=== PATIENT | female | born 1985 | race African-American/Black ===

== ENCOUNTER 2020-09-15 10:42 | Observation (INO) | payer BC, SELFPAY ==
[2020-09-15 10:59] VITALS: BP 118/59; PULSE 89
[2020-09-15 11:00] VITALS: TEMP 36.9
[2020-09-15 11:10] VITALS: BMI 35.7
--- NOTE | 2020-09-15 11:10 | OBADM ---
This patient, Anthony Paris, admitted to the OB room 115 on 09/15 20 at 1042 for observation for c/o contractions and back pain. Patient/family oriented to hospital policies and general routines including ID bracelet, bed and alarms, visiting hours, pain management, procedures, bathroom and other care routines, personal items, smoking policy, room service/diet, and visiting hours. Patient/Family are encouraged to report perceived risks to care and to ask questions if they do not understand what they are told or what they should do.
[2020-09-15 11:26] LABS: Add Urine Microscopic? YES; Appearance Urine Clear (Clear); Bacteria Urine Trace /hpf; Bilirubin Urine Negative (Negative); Blood Urine Negative (Negative); Color Urine Yellow (Yellow); Glucose Urine UA Negative (Negative); Ketones Urine Negative (Negative); Leukocyte Esterase Ur 2+ LEU/UL (Negative); Mucus Urine Rare /lpf; Nitrate Urine Negative (Negative); Protein Urine Negative (Negative); RBC Urine 0-2 /hpf (0-2); Specific Grav Ur 1.006 (1.001-1.035); Squamous Epithelial Cell Urine Few /hpf (Few); Urobilinogen Urine Negative mg/dL (<2.0); WBC Urine 0-3 /hpf
[2020-09-15 12:01] VITALS: BP 116/62; PULSE 78
[2020-09-15 13:01] VITALS: BP 116/58; PULSE 79
--- NOTE | 2020-09-17 08:26 | P.PNOB_ITS ---
OB - Triage/Final Diagnosis Visit Information Comments/Additional reasons for admission: I have assessed the risk for this patient, Anthony Paris, and determined that she would benefit from observation care. Evaluation Laboratory results: Laboratory Tests 09/15/20 11:14 Urine Color Yellow Urine Appearance Clear Urine pH 7.0 Ur Specific [employer] 1.006 Urine Protein Negative Urine Glucose (UA) Negative Urine Ketones Negative Ur Blood (Man) Negative Urine Nitrate Negative Urine Bilirubin Negative Urine Urobilinogen Negative Leukocyte Esterase Rfl 2+ H Urine RBC 0-2 Urine WBC 0-3 Ur Squamous Epith Cells Few Urine Bacteria Trace Hyaline Casts 1-2 Urine Mucus Rare Final Diagnosis (1) False labor: Code(s): O47.9 - False labor, unspecified Status: Acute
== END 2020-09-15 13:05 | disposition home or self-care (01) ==
PROVIDERS: Admitting Provider Obstetrics & Gynecology; PCP Internal Medicine; Visit Provider Obstetrics & Gynecology
DX: O47.03 False labor before 37 completed weeks of gestation, third trimester (principal); Z3A.29 29 weeks gestation of pregnancy
CPT/HCPCS: 81001; G0378; G0379

== ENCOUNTER 2020-11-09 15:54 | Observation (INO) | payer BC, SELFPAY ==
--- NOTE | 2020-11-09 15:54 | OBADM ---
This patient, Anthony Paris, admitted to the OB room Labor/Delivery/Recovery 105 for observation. Patient/family oriented to hospital policies and general routines including ID bracelet, bed and alarms, visiting hours, pain management, procedures, bathroom and other care routines, personal items, smoking policy, room service/diet, and visiting hours. Patient/Family are encouraged to report perceived risks to care and to ask questions if they do not understand what they are told or what they should do.
[2020-11-09 16:16] VITALS: BP 110/66; PULSE 86
[2020-11-09 16:31] VITALS: BP 106/56; PULSE 79
[2020-11-09 16:46] VITALS: BP 105/59; PULSE 80
[2020-11-09 17:01] VITALS: BP 106/59; PULSE 78
[2020-11-09 17:16] VITALS: BP 104/61; PULSE 80
[2020-11-09 17:31] VITALS: BP 104/57; PULSE 78
[2020-11-09 18:03] LABS: Add Urine Microscopic? YES; Appearance Urine Cloudy (Clear); Bacteria Urine Trace /hpf; Bilirubin Urine Negative (Negative); Blood Urine Negative (Negative); Color Urine Yellow (Yellow); Glucose Urine UA Negative (Negative); Ketones Urine Negative (Negative); Leukocyte Esterase Ur 3+ LEU/UL (NEGATIVE); Mucus Urine Few /lpf; Nitrate Urine Negative (Negative); Protein Urine 1+ mg/dL (Negative); Squamous Epithelial Cell Urine Many /hpf (Few)
[2020-11-09 18:13] VITALS: BMI 36.6
--- NOTE | 2020-11-13 09:43 | P.PNOB_ITS ---
OB - Triage/Final Diagnosis Visit Information Comments/Additional reasons for admission: I have assessed the risk for this patient, Anthony Paris, and determined that she would benefit from observation care. Evaluation Laboratory results: Laboratory Tests 11/09/20 17:46 Urine Color Yellow Urine Appearance Cloudy H Urine pH 6.0 Ur Specific [place] 1.020 Urine Protein 1+ H Urine Glucose (UA) Negative Urine Ketones Negative Ur Blood (Man) Negative Urine Nitrate Negative Urine Bilirubin Negative Urine Urobilinogen 2.0 H Ur Leukocyte Esterase 3+ H Urine RBC 3-5 H Urine WBC 7-9 H Ur Squamous Epith Cells Many H Urine Bacteria Trace Urine Mucus Few H Final Diagnosis (1) Term : Code(s): Z34.90 - Encounter for supervision of normal , unspecified, unspecified trimester Status: Acute (2) False labor: Code(s): O47.9 - False labor, unspecified Status: Acute
== END 2020-11-09 17:45 | disposition home or self-care (01) ==
PROVIDERS: Admitting Provider Obstetrics & Gynecology; PCP Internal Medicine; Visit Provider Obstetrics & Gynecology
DX: O47.1 False labor at or after 37 completed weeks of gestation (principal); Z3A.37 37 weeks gestation of pregnancy
CPT/HCPCS: 81001; 87086; 87088; G0378; G0379

== ENCOUNTER 2020-11-10 06:06 | Inpatient (IN) | payer BC, SELFPAY ==
[2020-11-10] VITALS (21 sets, daily range): BP systolic 99–136; BP diastolic 54–91; PULSE 61–76; RESP 16; TEMP 36.6–36.9; O2SAT 100; BMI 35.9
[2020-11-10 07:45] LABS: Basophils Percent Auto 0.1 % (0.2-1.2); Eosinophils Percent Auto 0.1 % (0-4.4); Hematocrit 32.2 % (37.0-47.0); Hemoglobin 10.7 g/dL (12.0-15.0); Immature Granulocyte Absolute 0.08 K/mm3 (0.00-0.031); Immature Granulocyte Percent A 0.6 % (0-0.5); Lymphocytes Absolute Auto 1.87 K/mm3 (0.9-3.2); Lymphocytes Percent Auto 13.7 % (18.3-44.2); Mean Corpuscular HGB Conc 33.2 g/dl (32-36); Mean Corpuscular Hemoglobin 28.3 pg (26-34); Mean Corpuscular Volume 85.2 fl (80-100); Monocytes Absolute Auto 0.8 K/mm3 (0.1-0.6); Monocytes Percent Auto 5.5 % (2.6-8.5); Neutrophils Absolute Auto 10.9 K/mm3 (1.3-6.7); Platelet Count Result 350 k/mm3 (150-375); Red Blood Count 3.78 M/mm3 (4.2-5.4); Red Cell Distribution Width 14.8 % (11.5-14.5); White Blood Count 13.6 K/mm3 (4.5-10.0)
[2020-11-10] MEDS: fentaNYL CITRATE INJ (*CRX) 100 MCG/2 ML VIAL 50 MCG IV PUSH (07:57)
[2020-11-10] MEDS: LACTATED RINGERS 1,000 ML 125 ML IV CONT (07:59)
--- NOTE | 2020-11-10 08:06 | LDADM ---
This patient, Anthony Paris, was admitted to Labor/Delivery/Recovery 105 on 11/10/20 at 06:07. Plans for labor, pain management and were discussed with patient. Patient/family oriented to hospital policies and general routines including ID bracelet, bed and alarms, visiting hours, pain management, procedures, bathroom and other care routines, personal items, smoking policy, room service/diet and guest tray routines, security routines, and visiting hours. Patient/Family are encouraged to report perceived risks to care and to ask questions if they do not understand what they are told or what they should do. See OBIX for further documentation.
--- NOTE | 2020-11-10 08:43 | PM.OBPNLAB ---
Pain Control Date/time seen: 11/10/20 08:43 Pain control: tolerating well and narcotic analgesia Comments: pain 4/10 after 50 mcg fentanyl IV Pelvic Exam Dilation (cm): 7 Effacement (%): 80 station: -1 Amniotic membrane status: Ruptured (artificial rupture of membranes with amnihook) Comments: meconium stained amniotic fluid Contractions Monitor mode: Internal Contraction frequency: 3 Contraction duration: 40 Contraction pattern: Irregular Contraction phase: Resting Contraction intensity: Mild Intrauterine tone measurement: 5 Status status: Category l Assessment and Plan Assessment: active labor and other (protracted active phase) Plan: continuous present management and begin patient augmentation Comments: AROM performed and adding pitocin for augmentation, and peanut ball placement. Monitor, observe for completion of stage 1.
--- NOTE | 2020-11-10 08:56 | PM.IMHP ---
H&P: HPI History of Present Illness Date/Time: 11/10/20 08:56 35yo presents at 37w6d. complicated by MTHFR, BV, trich (05/17/20 and 07/06/20), HSV, varicella non-immune, depression, anxiety, and tobacco use. Patient presented 11/09/20 with spontaneous onset of labor. Was dilated to 6 cm but made no further cervical change after several hours of observation. She was then sent home. She began olivier more frequently early this morning and presented to the emergency room with nausea and vomiting. In Labor and delivery was found to be 7 cm dilated on 11/10/2020. She is now being admitted in active labor. Her care began on 05/17/2020 and she had 9 visits. Her was monitored with serial ultrasounds each trimester, NIPT, GGT, GBS, B12 injections, aspirin, progesterone, and folic acid. She is having a girl ([place]), no to epidural, combination of breast and bottle feed, PPBC is tubal ligation at a later date. Chief Complaint: Term Spontaneous onset of labor Review of Systems Review of Systems: All systems reviewed & are unremarkable except as noted in HPI and below Constitutional: Constitutional: Reports as per HPI Eyes: Eyes: Reports as per HPI ENT: Reports as per HPI Cardiovascular: Cardiovascular: Reports as per HPI Respiratory: Respiratory: Reports as per HPI Gastrointestinal: Gastrointestinal: Reports as per HPI Genitourinary: Genitourinary: Reports as per HPI Musculoskeletal: Musculoskeletal: Reports as per HPI Integumentary/Breasts: Skin/Breast: Reports as per HPI Neurologic: Reports as per HPI Psychiatric: Psychiatric: Reports as per HPI Endocrine: Endocrine: Reports as per HPI Hematologic/Lymphatic: Hematologic/Lymphatic: Reports as per HPI Allergic/Immunologic: Allergic/Immunologic: Reports as per HPI PMF Past Medical History Medical History (Updated 11/10/20 @ 09:13 by Minor Childers MD) Generalized anxiety disorder Genital herpes simplex Heterozygous MTHFR mutation [id number] History of trichomonal vaginitis Major depressive disorder Maternal varicella, non-immune Social History Social History (Updated 11/10/20 @ 09:10 by Minor Childers MD) Years smoked: 5 Smoking status: Current every day smoker Tobacco type: cigarettes Second hand tobacco smoke exposure: No Alcohol intake: never Substance use: current Substance use type: marijuana Living arrangements: with family Occupation/Education: occupation Gender identity (if verbalized by the patient): Female Sexual Orientation (if Verbalized by the Patient): Straight or Heterosexual Spiritual care concerns: No Agree to blood products: Yes Meds Home Medications and Allergies Home Medications Medication Instructions Recorded Confirmed Type PNV cmb#95-ferrous fumarate-FA 1 tablet PO DAILY 09/15/20 09/15/20 History [] calcium carbonate-vitamin D3 1 tablet PO BID 09/15/20 09/15/20 History folic acid 1 mg PO BID 09/15/20 09/15/20 History Allergies Allergy/AdvReac Type Severity Reaction Status Date / Time No Known Allergies Allergy Verified 09/15/20 11:55 Vital Signs Vital Signs - 24 hr 11/10/20 06:26 11/10/20 06:27 11/10/20 06:31 Temperature 98.3 F Pulse Rate 71 72 Blood Pressure 107/66 112/66 11/10/20 06:46 11/10/20 07:01 11/10/20 07:16 Temperature Pulse Rate 69 67 71 Blood Pressure 109/61 109/55 L 105/57 L 11/10/20 07:31 11/10/20 08:31 11/10/20 08:46 Temperature Pulse Rate 65 61 70 Blood Pressure 109/61 109/59 L 116/58 L Exam Const: General: cooperative, healthy appearing and comfortable HENMT: Head: normal to inspection Eyes: General: appearance normal, both eyes and all related structures Neck: Neck: normal visual inspection Chest: Chest palpation & inspection: normal inspection of the chest Resp: Effort & Inspection: normal respiratory effort Cardio: Rate: regular rate Rhythm:
[2020-11-10] MEDS: OXYTOCIN 30 UNITS/NS 500 ML 30 UNITS/500 ML BAG IV CONT (09:12)
--- NOTE | 2020-11-10 09:12 | WPDHPUPDATE1 ---
History and Physical Update Update Date/Time: 11/10/20 09:12 History and Physical has been reviewed, including an updated exam of the patient. There are NO changes in the patient's condition. Risks, benefits, and alternatives have been discussed and questions answered. Patient agrees to proceed with procedure. 35yo presents at 37w6d. complicated by MTHFR, BV, trich (05/17/20 and 07/06/20), HSV, varicella non-immune, depression, anxiety, and tobacco use. Patient presented 11/09/20 with spontaneous onset of labor. Was dilated to 6 cm but made no further cervical change after several hours of observation. She was then sent home. She began olivier more frequently early this morning and presented to the emergency room with nausea and vomiting. In Labor and delivery was found to be 7 cm dilated on 11/10/2020. She is now being admitted in active labor. Her care began on 05/17/2020 and she had 9 visits. Her was monitored with serial ultrasounds each trimester, NIPT, GGT, GBS, B12 injections, aspirin, progesterone, and folic acid. She is having a girl (Alahna), no to epidural, combination of breast and bottle feed, PPBC is tubal ligation at a later date.
--- NOTE | 2020-11-10 09:14 | PM.OBPNLAB ---
Pain Control Date/time seen: 11/10/20 09:14 Pain control: tolerating well and narcotic analgesia Pelvic Exam Dilation (cm): 8 Effacement (%): 100 station: 0 Amniotic membrane status: Ruptured (artificial rupture of membranes with amnihook) Contractions Monitor mode: Internal Contraction frequency: 3 Contraction pattern: Irregular Contraction phase: Resting Contraction intensity: Mild Intrauterine tone measurement: 5 Status status: Category l Assessment and Plan Assessment: active labor Plan: continuous present management Comments: Anticipate vaginal delivery soon
[2020-11-10 09:17] LABS: Barbiturate Screen Urine Negative (Negative); Benzodiazepines Screen Urine Negative (Negative)
[2020-11-10 09:21] LABS: Amphetamine Screen Urine Negative (Negative); Cannabinoid Screen Urine Positive (Negative); Cocaine Screen Urine Negative (Negative); Methadone Screen Urine Negative (Negative); Opiate Screen Urine Negative (Negative); Phencyclidine Screen Urine Negative (Negative)
--- NOTE | 2020-11-10 09:28 | WPDANESEPP ---
Anes - Eval Pre Procedure Date/Time: 11/10/20 09:28 Pre Op Diagnosis: nausea Patient Data Age: 35 Gender: F Height: 1.7 m Weight: 104 kg Last Vital Signs Temp 36.8 C 11/10/20 06:26 Pulse 69 11/10/20 09:16 BP 136/79 11/10/20 09:16 Allergies Allergy/AdvReac Type Severity Reaction Status Date / Time No Known Allergies Allergy Verified 09/15/20 11:55 Home Medications Medication Instructions Recorded Confirmed Type PNV cmb#95-ferrous fumarate-FA 1 tablet PO DAILY 09/15/20 09/15/20 History [] calcium carbonate-vitamin D3 1 tablet PO BID 09/15/20 09/15/20 History folic acid 1 mg PO BID 09/15/20 09/15/20 History Laboratory Tests 11/10/20 11/10/20 11/10/20 07:39 07:39 07:39 WBC 13.6 K/mm3 H K/mm3 (4.5-10.0) RBC 3.78 M/mm3 L M/mm3 (4.2-5.4) Hgb 10.7 g/dL L g/dL (12.0-15.0) Hct 32.2 % L % (37.0-47.0) MCV 85.2 fl fl (80-100) MCH 28.3 pg pg (26-34) MCHC 33.2 g/dl g/dl (32-36) RDW 14.8 % H % (11.5-14.5) Plt Count 350 k/mm3 k/mm3 (150-375) MPV 9.0 fl fl (7.4-10.4) Immature Gran % (Auto) 0.6 % H % (0-0.5) Neut % (Auto) 80.0 % H % (45.5-73.1) Lymph % (Auto) 13.7 % L % (18.3-44.2) [place] % (Auto) 5.5 % % (2.6-8.5) Eos % (Auto) 0.1 % % (0-4.4) Baso % (Auto) 0.1 % L % (0.2-1.2) Lymph # (Auto) 1.87 K/mm3 K/mm3 (0.9-3.2) [place] # (Auto) 0.8 K/mm3 H K/mm3 (0.1-0.6) Eos # (Auto) 0.0 K/mm3 K/mm3 (0-0.3) Baso # (Auto) 0.0 K/mm3 K/mm3 (0.0-0.1) Abs Immat Gran (auto) 0.08 K/mm3 H K/mm3 (0.00-0.031) Absolute Neuts (auto) 10.9 K/mm3 H K/mm3 (1.3-6.7) Absolute Nucleated RBC 0.0 K/mm3 K/mm3 (0.0-0.012) Nucleated RBC % 0.0 % % (0.0-0.2) Urine Opiates Screen Urine Methadone Screen Ur Barbiturates Screen Ur Phencyclidine Scrn Ur Amphetamine Screen U Benzodiazepines Scrn Urine Cocaine Screen U Cannabinoids Screen RPR Pending Blood Type B Positive Antibody Screen Negative 11/10/20 08:24 WBC RBC Hgb Hct MCV MCH MCHC RDW Plt Count MPV Immature Gran % (Auto) Neut % (Auto) Lymph % (Auto) [place] % (Auto) Eos % (Auto) Baso % (Auto) Lymph # (Auto) [place] # (Auto) Eos # (Auto) Baso # (Auto) Abs Immat Gran (auto) Absolute Neuts (auto) Absolute Nucleated RBC Nucleated RBC % Urine Opiates Screen Negative (Negative) Urine Methadone Screen Negative (Negative) Ur Barbiturates Screen Negative (Negative) Ur Phencyclidine Scrn Negative (Negative) Ur Amphetamine Screen Negative (Negative) U Benzodiazepines Scrn Negative (Negative) Urine Cocaine Screen Negative (Negative) U Cannabinoids Screen Positive A (Negative) RPR Blood Type Antibody Screen Patient hx anesthesia problems: none Family hx anesthesia problems: none Results Review: All pre-operative results and documents have been reviewed as part of the pre-operative evaluation. [facility] Past Medical History Medical History Generalized anxiety disorder Genital herpes simplex Heterozygous MTHFR mutation [id number] History of trichomonal vaginitis Major depressive disorder Maternal varicella, non-immune Social History Social History Years smoked: 5 Smoking status: Current every day smoker Tobacco type: cigarettes Second hand tobacco smoke exposure: No Alcohol intake: never Substance use: current Substance use
--- NOTE | 2020-11-10 09:49 | PM.OBPRVD ---
OB - Delivery Note Procedure Delivery date: 11/10/20 Procedure: Normal spontaneous vertex vaginal delivery with viable female and placenta. events: Labor Augmentation (Artificial rupture of membranes with amnihook) and Meconium Stained Fluid Intrapartal events: None Delivery augmentation: rupture of membranes (Artificial rupture membranes with amnihook, meconium stained fluid) and pitocin Delivery monitor: internal FHT and internal uterine Route of delivery: Episiotomy description: None Laceration Description: None Specimen: Yes (Placenta cord blood and cord blood gases) Quantitative Blood Loss (ml): 250 Anesthesia type: None Disposition: floor Complications: None Narrative: Patient was fully dilated. Patient was prepped in sterile fashion for vaginal delivery. Patient was prepped with Betadine and placed in leg stirrups. Patient began pushing in 2nd stage of labor with January maneuver. A normal spontaneous vertex vaginal delivery ensued with head delivered spontaneously with cord reduced around neck without difficulty. Anterior shoulder delivered without difficulty. Rest of baby was delivered and placed on maternal abdomen. Then cord was clamped and cut. was handed to nursery nurse in attendance. Spontaneous respirations and cry, taken to warmer, score at 1 minutes was 8 and 5 minutes was 9. Time of delivery was 0939 on 11/10/2020. Cord gases were obtained as well as cord blood. with Pitocin given intravenously, placenta was delivered intact with 3 vessel cord. Cervix was checked and uterus was massaged and involuted well. Blood and clots removed from vagina. Perineum was inspected without any laceration visualized. Mom and baby and LDR room 105 in stable condition. Baby Date of : 11/10/20 Time of : 09:39 Weeks of gestation at delivery: 37 Infant gender: Female (al[place]na) Weight (ounces): 0 presentation: vertex position: Left Occiput Anterior Placenta delivery description: Spontaneous and Normal Configuration cord vessel description: 3 Vessels and Nuchal Cord score one minute: 8 score five minutes: 9
[2020-11-10] MEDS: OXYTOCIN 30 UNITS/NS 500 ML 30 UNITS/500 ML BAG 125 UNITS IV CONT (10:17)
[2020-11-10] MEDS: WITCH HAZEL 40 PADS 1 PAD TOPICAL (10:46)
[2020-11-10] MEDS: IBUPROFEN 600 MG TABLET PO ×2 (10:46→19:13)
[2020-11-10] MEDS: BENZOCAINE 20% AER SPR (*SP) 56 GM CAN 1 SPRAY TOPICAL (10:46)
--- NOTE | 2020-11-10 12:06 | PC.NURSE ---
Patient transferred to post room #289 via wheelchair. Support person present. Oriented to unit, room, information board, rooming in, admission packet and security measures. Patient verbalizes understanding.
[2020-11-11] VITALS (10 sets, daily range): BP systolic 110–147; BP diastolic 59–96; PULSE 51–87; RESP 10–26; TEMP 36.6–37.4; O2SAT 99–100
[2020-11-11] MEDS: IBUPROFEN 600 MG TABLET PO ×3 (05:02→21:50)
[2020-11-11 05:37] LABS: Hematocrit 30.8 % (37.0-47.0); Hemoglobin 10.2 g/dL (12.0-15.0)
--- NOTE | 2020-11-11 07:49 | P.PNOB_ITS ---
OB - PN: Subj Subjective Date/time seen: 11/10/20 15:25 Patient comments: no complaints, pain well controlled, tolerating diet and flatus present [place] baby status: doing well and bottle feeding well [place] feeding status: exclusively bottle feeding OB - PN: Obj Data Labs CBC & Chem 7: 11/11/20 05:32 Labs: Laboratory Results - last 24 hr 11/10/20 11/10/20 11/10/20 07:39 07:39 08:24 WBC 13.6 H RBC 3.78 L Hgb 10.7 L Hct 32.2 L MCV 85.2 MCH 28.3 MCHC 33.2 RDW 14.8 H Plt Count 350 MPV 9.0 Immature Gran % (Auto) 0.6 H Neut % (Auto) 80.0 H Lymph % (Auto) 13.7 L [place] % (Auto) 5.5 Eos % (Auto) 0.1 Baso % (Auto) 0.1 L Lymph # (Auto) 1.87 [place] # (Auto) 0.8 H Eos # (Auto) 0.0 Baso # (Auto) 0.0 Abs Immat Gran (auto) 0.08 H Absolute Neuts (auto) 10.9 H Absolute Nucleated RBC 0.0 Nucleated RBC % 0.0 Urine Opiates Screen Negative Urine Methadone Screen Negative Ur Barbiturates Screen Negative Ur Phencyclidine Scrn Negative Ur Amphetamine Screen Negative U Benzodiazepines Scrn Negative Urine Cocaine Screen Negative U Cannabinoids Screen Positive A Blood Type B Positive Antibody Screen Negative OB - PN A/P Assessment and Plan (1) Term delivered: Code(s): O80 - Encounter for full-term uncomplicated delivery Status: Acute Plan day: 1 Plan: routine care and other (female sterilization desired) Comments: pptl today 1472 Time Spent With Patient Time: Total time spent is greater than 50% in coordination of care (as docum ented) at patient's floor/unit and/or counseling patient: Review of Systems Review of Systems: All systems reviewed & are unremarkable except as noted in HPI and below Exam Const: General: cooperative, healthy appearing, comfortable, no acute distress, well developed, alert, awake and Physically active HENMT: Head: normal to inspection Eyes: General: appearance normal, both eyes and all related structures Neck: Neck: normal visual inspection Chest: Chest palpation & inspection: normal inspection of the chest Resp: Effort & Inspection: normal respiratory effort Auscultation: clear to auscultation bilaterally Cardio: Rate: regular rate Rhythm: regular rhythm GI: Inspection: normal to inspection : External Female Exam: normal external appearance Bimanual exam- vagina & uterus: non-tender Back/Spine/Pelvis: Back: no CVA tenderness Skin: General skin exam: normal color Neuro: General: patient oriented x3, gait normal, tone normal, moves all extremities and Normal light touch and pain sensation Extrem: General: normal to inspection and full ROM Psych: Appearance: grossly normal Mental Status: mental status grossly normal Affect: normal affect Attitude: cooperative Thought process: Normal thought process present Thought content: Yes Normal thought content present Insight: Good insight present (Psych) Judgement: Good judgement present (Psych)
--- NOTE | 2020-11-11 07:56 | PM.HPGS ---
History of Present Illness History of Present Illness Consent: Risks, benefits, and alternatives have been discussed and questions answered. Patient agrees to proceed with procedure. Chief complaint: desires female sterilization Narrative: Anthony Paris is a 35 year old female s/p NSVVD on 11/10/20 who presents for post bilateral tubal ligation. She is multiparous and signed the [facility] tubal consent form. She understands that it is permanent, irreversible, she understands the failure rate (3/4 per 1,000), with increased risk of ectopic with sequelae. She also understands that she will no longer be able to become in the future. complicated by MTHFR, BV, trich (05/17/20 and 07/06/20), HSV, varicella non-immune, depression, anxiety, and tobacco use. She understands the risks involved including bleeding, infection, damage to bladder, bowel, pelvic vessels, DVT, UTI, pneumonia, wound infection, risk of anesthesia. informed consent obtained, she agrees to proceed. Review of Systems Review of Systems: All systems reviewed & are unremarkable except as noted in HPI and below Constitutional: Constitutional: Reports no additional constitutional complaints Eyes: Eyes: Reports no additional eye complaints ENT: Reports as per HPI Cardiovascular: Cardiovascular: Reports as per HPI Respiratory: Respiratory: Reports as per HPI Gastrointestinal: Gastrointestinal: Reports as per HPI Genitourinary: Genitourinary: Reports as per HPI Musculoskeletal: Musculoskeletal: Reports as per HPI Integumentary/Breasts: Skin/Breast: Reports as per HPI Neurologic: Reports as per HPI Psychiatric: Psychiatric: Reports as per HPI Endocrine: Endocrine: Reports as per HPI Hematologic/Lymphatic: Hematologic/Lymphatic: Reports as per HPI Allergic/Immunologic: Allergic/Immunologic: Reports as per HPI PMF Past Medical History Medical History Generalized anxiety disorder Genital herpes simplex Heterozygous MTHFR mutation [id number] History of trichomonal vaginitis Major depressive disorder Maternal varicella, non-immune Social History Social History Years smoked: 5 Smoking status: Current every day smoker Tobacco type: cigarettes Second hand tobacco smoke exposure: No Alcohol intake: never Substance use: current Substance use type: marijuana Living arrangements: with family Occupation/Education: occupation Gender identity (if verbalized by the patient): Female Sexual Orientation (if Verbalized by the Patient): Straight or Heterosexual Spiritual care concerns: No Agree to blood products: Yes Meds Home Medications and Allergies Home Medications Medication Instructions Recorded Confirmed Type PNV cmb#95-ferrous fumarate-FA 1 tablet PO DAILY 09/15/20 09/15/20 History [] calcium carbonate-vitamin D3 1 tablet PO BID 09/15/20 09/15/20 History folic acid 1 mg PO BID 09/15/20 09/15/20 History Allergies Allergy/AdvReac Type Severity Reaction Status Date / Time No Known Allergies Allergy Verified 09/15/20 11:55 Vital Signs Vital Signs - 24 hr 11/10/20 06:26 11/10/20 06:27 11/10/20 06:31 Temperature 98.3 F Pulse Rate 71 72 Respiratory Rate Blood Pressure 107/66 112/66 Pulse Oximetry 11/10/20 06:46 11/10/20 07:01 11/10/20 07:16 Temperature Pulse Rate 69 67 71 Respiratory Rate Blood Pressure 109/61 109/55 L 105/57 L Pulse Oximetry 11/10/20 07:31 11/10/20 08:31 11/10/20 08:46 Temperature Pulse Rate 65 61 70 Respiratory Rate Blood Pressure 109/61 109/59 L 116/58 L Pulse Oximetry 11/10/20 09:01 11/10/20 09:16 11/10/20 09:46 Temperature Pulse Rate 68 69 74 Respiratory Rate Blood Pressure 124/69 136/79 110/65 Pulse Oximetry 11/10/20 10:01 11/10/20 10:16 11/10/20 10:31 Temperature
[2020-11-11] MEDS: ACETAMINOPHEN 325 MG TABLET 650 MG PO (08:28)
--- NOTE | 2020-11-11 08:42 | WPDANESEPP ---
Anes - Eval Pre Procedure Procedure: Tubal Ligation Operation Date: 11/11/20 14:30 Proposed Procedures p Post Bilateral Salpingectomy - Minor Childers MD Date/Time: 11/11/20 08:42 Surgeon: Alvarado Preop Diagnosis: Desired sterility Pre Op Diagnosis: desires female sterilization Patient Data Age: 35 Gender: F Height: 1.7 m Weight: 104 kg Last Vital Signs Temp 36.7 C 11/10/20 19:55 Pulse 62 11/10/20 19:55 Resp 16 11/10/20 19:55 BP 102/59 L 11/10/20 19:55 Pulse Ox 100 11/10/20 15:45 Allergies Allergy/AdvReac Type Severity Reaction Status Date / Time No Known Allergies Allergy Verified 09/15/20 11:55 Home Medications Medication Instructions Recorded Confirmed Type PNV cmb#95-ferrous fumarate-FA 1 tablet PO DAILY 09/15/20 09/15/20 History [] calcium carbonate-vitamin D3 1 tablet PO BID 09/15/20 09/15/20 History folic acid 1 mg PO BID 09/15/20 09/15/20 History oxycodone-acetaminophen [Percocet] 1 tablet PO Q6H PRN #14 tablet 11/11/20 Rx Laboratory Tests 11/10/20 11/10/20 11/11/20 07:39 08:24 05:32 Hgb 10.2 g/dL L g/dL (12.0-15.0) Hct 30.8 % L % (37.0-47.0) Urine Opiates Screen Negative (Negative) Urine Methadone Screen Negative (Negative) Ur Barbiturates Screen Negative (Negative) Ur Phencyclidine Scrn Negative (Negative) Ur Amphetamine Screen Negative (Negative) U Benzodiazepines Scrn Negative (Negative) Urine Cocaine Screen Negative (Negative) U Cannabinoids Screen Positive A (Negative) Blood Type B Positive Antibody Screen Negative Patient hx anesthesia problems: none Family hx anesthesia problems: none Results Review: All pre-operative results and documents have been reviewed as part of the pre-operative evaluation. [facility] Past Medical History Medical History Generalized anxiety disorder Genital herpes simplex Heterozygous MTHFR mutation [id number] History of trichomonal vaginitis Major depressive disorder Maternal varicella, non-immune Social History Social History Years smoked: 5 Smoking status: Current every day smoker Tobacco type: cigarettes Second hand tobacco smoke exposure: No Alcohol intake: never Substance use: current Substance use type: marijuana Living arrangements: with family Occupation/Education: occupation Gender identity (if verbalized by the patient): Female Sexual Orientation (if Verbalized by the Patient): Straight or Heterosexual Spiritual care concerns: No Agree to blood products: Yes Exam Day of Procedure 11/11/20 08:42 Patient weight: overweight Heart: regular rate and rhythm Lungs: normal air movement Airway: Mallampati scale class II Neurological: alert and oriented
--- NOTE | 2020-11-11 08:56 | WPDHPUPDATE1 ---
History and Physical Update Update Date/Time: 11/11/20 08:56 History and Physical has been reviewed, including an updated exam of the patient. There are NO changes in the patient's condition. Risks, benefits, and alternatives have been discussed and questions answered. Patient agrees to proceed with procedure. Anthony Paris is a 35 year old female s/p NSVVD on 11/10/20 who presents for post bilateral tubal ligation. She is multiparous and signed the [facility] tubal consent form. She understands that it is permanent, irreversible, she understands the failure rate (3/4 per 1,000), with increased risk of ectopic with sequelae. She also understands that she will no longer be able to become in the future. complicated by MTHFR, BV, trich (05/17/20 and 07/06/20), HSV, varicella non-immune, depression, anxiety, and tobacco use. She understands the risks involved including bleeding, infection, damage to bladder, bowel, pelvic vessels, DVT, UTI, pneumonia, wound infection, risk of anesthesia. informed consent obtained, she agrees to proceed.
[2020-11-11 11:03] LABS: Rapid Plasma Reagin Non-Reactive (NonReactive)
--- NOTE | 2020-11-11 11:43 | PC.NURSE ---
In to consult with patient, patient denies any questions. She states this is her 5th baby and she is comfortable . States infant seems to be taking the bottle more and she is ok with that. Denies any nipple or breast tenderness. Declines the offer for a breast pump. at nurse's station. Encouraged mom to call with next feeding if she desired to have feeding assessed.
--- NOTE | 2020-11-11 13:03 | PC.NURSE ---
Patient taken to pre-op per bed.
[2020-11-11] MEDS: LACTATED RINGERS 1,000 ML 30 ML IV CONT ×2 (13:55→16:12)
--- NOTE | 2020-11-11 14:10 | WPDANESEFPP ---
Anes - Eval Final PreProcedure Day of Procedure 11/11/20 14:10 Patient weight: obese Heart: regular rate and rhythm Lungs: clear to auscultation Airway: Mallampati scale class II Neurological: alert and oriented Last oral intake: >/= 8 hours ASA classification: II Emergent: no Anesthetic plan: proceed Anesthesia type and monitoring: general ETT and standard monitoring Results Review: All pre-operative results and documents have been reviewed as part of the pre-operative evaluation. Informed Consent: The patient's anesthetic plan and its attendant risks and benefits were discussed with the patient/family/POA. Questions were solicited and answers provided to the satisfaction of the patient/family/POA.
[2020-11-11] MEDS: ceFAZolin 2 GM/D5W 50 ML 2 GM/50 ML BAG IVPB (14:55)
[2020-11-11] MEDS: BUPIVACAINE HCL 0.25% PF 30 ML VIAL INFILTRATE (15:15)
--- NOTE | 2020-11-11 15:40 | P.OP_ITS ---
Procedure Note - Detailed Date of Procedure 11/11/20 Pre-op Diagnosis desires female sterilization Post-op Diagnosis same (desires female sterilization) Procedure Performed bilateral tubal female sterilization with bilateral salpingectomy Surgeon Minor Childers MD [employer] mortgage manager and transplant surgeon Anesthesia general (ETT) Indications desires female sterilization Findings normal uterus tubes and ovaries hemostasis excellent Description of Procedure Informed consent obtained ID PA tubal consent form was in the chart. Patient was taken to the operating room placed in the supine position given IV general anesthesia then was oral trach intubated without difficulty. Her abdomen was prepped and draped and will sterile fashion. Time-out was performed. Infiltration of the umbilicus with 0.25% Marcaine plain 20 cc was followed by an infraumbilical incision and the abdomen was opened in layers using electrocautery the intra-abdominal contents were reflected anteriorly with Trendelenburg position and with sponge sticks with in the abdomen. In a bilateral sequential fashion the fallopian tubes were traced out to the fimbriated aspects. The mesial salpinx was endo coagulated and P and clamps were placed at the proximal tube the fimbriae ovarian vessels and the arcuate vessels. The fallopian tubes were excised using electrocautery and the proximal tube the arcuate vessel and the fimbriae ovarian vessels were doubly ligated with 2 0 silk sutures doubly and and the pedicles were dry. Fallopian tubes were sent off for pathologic confirmation. Sponge needle instrument counts were correct fascia peritoneum were closed with 0 Vicryl suture in a running fashion skin was closed with 4-0 PDS subcuticular Dermabond to the skin procedure was completed patient was extubated in the operating room taken recovery room stable condition Implants none Estimated Blood Loss 25 IV Fluids 1,000 Urine Output 100 Drains No Packing No Pathology yes (right and left fallopian tubes) Complications None Condition stable Disposition floor
[2020-11-11] MEDS: fentaNYL CITRATE INJ (*CRX) 100 MCG/2 ML VIAL 25 MCG IV PUSH ×6 (16:04→16:45)
--- NOTE | 2020-11-11 17:15 | PC.NURSE ---
Patient back from surgery, patient taken and brought back in bed. No transfer needed, call light within reach. Patient to call out when she needs to void so assistance can be provided to walk to the bathroom
[2020-11-11] MEDS: oxyCODONE/ACETAMINOPHEN (*CRX) 5-325 MG TABLET 1 TABLET PO ×2 (17:34→21:50)
[2020-11-11] MEDS: SIMETHICONE 80 MG TAB.CHEW PO (21:48)
[2020-11-12] VITALS: BP 110/53; PULSE 61; RESP 18; TEMP 36.6
[2020-11-12] MEDS: oxyCODONE/ACETAMINOPHEN (*CRX) 5-325 MG TABLET 1 TABLET PO ×2 (02:35→10:31)
[2020-11-12] MEDS: IBUPROFEN 600 MG TABLET PO ×2 (05:14→10:32)
[2020-11-12] MEDS: SIMETHICONE 80 MG TAB.CHEW PO (05:14)
--- NOTE | 2020-11-12 07:17 | PM.OBDSVD ---
DS: Admitting Diagnosis Discharge Date 11/12/20 Admitting Diagnosis 1) Term : Code(s): Z34.90 - Encounter for supervision of normal , unspecified, unspecified trimester Status: Acute (2) Spontaneous onset of labor: Status: Acute (3) Anemia affecting : Code(s): O99.019 - Anemia complicating , unspecified trimester Status: Acute (4) Urinary tract infection: Code(s): N39.0 - Urinary tract infection, site not specified Status: Acute (5) Maternal varicella, non-immune: Code(s): O09.899 - Supervision of other high risk pregnancies, unspecified trimester; Z28.3 - Underimmunization status Status: Acute (6) Major depressive disorder: Code(s): F32.9 - Major depressive disorder, single episode, unspecified Status: Acute (7) Generalized anxiety disorder: Code(s): F41.1 - Generalized anxiety disorder Status: Acute (8) Genital herpes simplex: Code(s): A60.00 - Herpesviral infection of urogenital system, unspecified Status: Acute (9) 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: Code(s): Z15.89 - Genetic susceptibility to other disease Status: Acute (10) Thin meconium stained amniotic fluid: Code(s): P96.83 - Meconium staining Status: Acute DS: Discharge Diagnosis Discharge Diagnosis (1) Term delivered: Code(s): O80 - Encounter for full-term uncomplicated delivery Status: Acute (2) Spontaneous onset of labor: Status: Acute (3) Thin meconium stained amniotic fluid: Code(s): P96.83 - Meconium staining Status: Acute (4) Heterozygous MTHFR mutation [id number]: Code(s): Z15.89 - Genetic susceptibility to other disease Status: Acute (5) Genital herpes simplex: Code(s): A60.00 - Herpesviral infection of urogenital system, unspecified Status: Acute (6) Generalized anxiety disorder: Code(s): F41.1 - Generalized anxiety disorder Status: Acute (7) Major depressive disorder: Code(s): F32.9 - Major depressive disorder, single episode, unspecified Status: Acute (8) Maternal varicella, non-immune: Code(s): O09.899 - Supervision of other high risk pregnancies, unspecified trimester; Z28.3 - Underimmunization status Status: Acute (9) Anemia affecting : Code(s): O99.019 - Anemia complicating , unspecified trimester Status: Acute (10) Encounter for female sterilization procedure: Code(s): Z30.2 - Encounter for sterilization Status: Acute OB - DS: Summary Hospital Course Time spent discussing smoking cessation with patient: 3 to 10 minutes OB Procedures : Ultrasound OB Procedures Intrapartum: Spontaneous Vag Delivery OB Procedures: : P.P. tubal ligation Peripartum Data Infant Delivery Method: Natural Vaginal Laceration Description: None Episiotomy description: None complications: none 1: Gender: Female Disposition of : home Status at Discharge Cognitive/behavioral status at discharge: normal Functional status at discharge: independent ambulation Overall status at discharge: patient is back to baseline Time Spent with Patient Time attestation: Total time spent providing and/or coordinating discharge services: Time spent: Less than 30 minutes Exam Const: General: cooperative, healthy appearing, comfortable, no acute distress, well developed, alert, awake and Physically active Nutritional Appearance: average body habitus Orientation/consciousness: patient oriented x3 Limitations: no limitations HENMT: Head: normal to inspection Eyes: General: appearance normal, both eyes and all related structures Neck: Neck: normal visual inspection Chest: Chest palpation & inspection: normal inspection of the chest Resp: Effort & Inspection: normal respiratory effort Auscultation: clear to auscultation bila
[2020-11-12 10:31] VITALS: BP 109/59; PULSE 72; RESP 16; TEMP 36.4; O2SAT 100
[2020-11-12] MEDS: MULTIVIT/MIN/PREN/FOL AC/IRON TABLET 1 TAB PO (10:31)
[2020-11-12] MEDS: DOCUSATE SODIUM 100 MG CAPSULE PO (10:31)
--- NOTE | 2020-11-12 12:09 | PCCCNOTE ---
Per Care Coordination: Pt. tested positive for THC upon UDS. Per nursing, UDS for baby was attempted five times with no success and telephone directory deliverer cancelled the order for UDS and Meconium. Pt. reports using THC during due to anxiety. Pt. reports this is her fifth child and FOB Mike at bedside. Pt. reports they have a big support system and have everything needed for new baby. Pt. reports in process of being established with [facility]. Pt. denies any prior involvement with DCFS. resources were provided to pt. DCFS online report # [id number]. DCFS emailed CC reporting this report did not meet the criteria for investigation.
[2020-11-14 09:10] VITALS: BP 108/64; PULSE 69; RESP 20; TEMP 36.8; O2SAT 100
== END 2020-11-12 13:02 | disposition home or self-care (01) | DRG 541 ==
LOC: ANHLDR 07:24 → ANHOB2 12:33
PROVIDERS: Admitting Provider Obstetrics & Gynecology; PCP Internal Medicine; Visit Provider Obstetrics & Gynecology
PROC: 0UB70ZZ Excision of Bilateral Fallopian Tubes, Open Approach (ICD-10-PCS; CPT 58605; principal; 2020-11-11 14:30)
DX: O99.02 Anemia complicating childbirth (principal); Z37.0 Single live birth; Z3A.37 37 weeks gestation of pregnancy; Z23 Encounter for immunization; D64.9 Anemia, unspecified; O77.0 Labor and delivery complicated by meconium in amniotic fluid; O99.284 Endocrine, nutritional and metabolic diseases complicating childbirth; E72.12 Methylenetetrahydrofolate reductase deficiency; O99.334 Smoking (tobacco) complicating childbirth; F17.210 Nicotine dependence, cigarettes, uncomplicated; O99.344 Other mental disorders complicating childbirth; F41.1 Generalized anxiety disorder; O98.52 Other viral diseases complicating childbirth; B00.9 Herpesviral infection, unspecified; O99.214 Obesity complicating childbirth; E66.9 Obesity, unspecified; Z30.2 Encounter for sterilization; O69.81X0 Labor and delivery complicated by cord around neck, without compression, not applicable or unspecified
CPT/HCPCS: 36415; 80307; 85014; 85018; 85025; 86592; 86850; 86900; 86901; 88302; A9270; J0330; J0690; J2250; J2405; J2590; J2704; J3010; J7120

== ENCOUNTER 2021-04-25 13:43 | Emergency (ER) | payer BC, SELFPAY ==
[2021-04-25 14:00] VITALS: BP 104/65; PULSE 78; RESP 16; TEMP 36.1; O2SAT 100
--- NOTE | 2021-04-25 14:13 | ED.DENTAL ---
HPI - Dental/Oral General Chief complaint: Dental/Oral Stated complaint: Tooth Pain Time Seen by Provider: 04/25/21 14:13 Source: patient Mode of arrival: ambulatory Limitations: no limitations History of Present Illness HPI Narrative: 35-year-old female presents with left upper dental pain for 2 to 3 days. Has had known broken tooth for several months. Has appointment with dentist in 3 weeks. Started to have some mild facial swelling today. Afebrile. All systems reviewed and negative except as noted above. Related Data Allergies Allergy/AdvReac Type Severity Reaction Status Date / Time No Known Allergies Allergy Verified 04/25/21 14:11 Review of Systems Review of Systems: CONSTITUTIONAL: Denies fever, chills, or sweats. EYES: Denies visual changes, redness, or discharge. ENT: Denies rhinorrhea, congestion, sore throat, or otalgia. Reports dental pain. CARDIOVASCULAR: Denies chest pain, palpitations, or edema. RESPIRATORY: Denies cough or dyspnea. GASTROINTESTINAL: Denies abdominal pain, nausea, vomiting, or diarrhea. GENITOURINARY: Denies dysuria or hematuria. SKIN: Denies rash or itching. MUSCULOSKELETAL: Denies back pain, joint pain, or myalgia. NEUROLOGIC: Denies headache, numbness, or weakness. PSYCHIATRIC: Denies anxiety or depression. All other systems reviewed are negative, except as documented in HPI. PMFSH Past Medical History Medical History Generalized anxiety disorder Genital herpes simplex Heterozygous MTHFR mutation [id number] History of trichomonal vaginitis Major depressive disorder Maternal varicella, non-immune Social History Social History Years smoked: 5 Smoking status: Current every day smoker Tobacco type: cigarettes Second hand tobacco smoke exposure: No Alcohol intake: never Substance use: current Substance use type: marijuana Gender identity (if verbalized by the patient): Female Sexual Orientation (if Verbalized by the Patient): Straight or Heterosexual Spiritual care concerns: No Agree to blood products: Yes Comments At time of signature, agree with nursing past medical, surgical, social and family history. There is no relevant family history pertinent to the presenting complaint. Exam Narrative: GENERAL: This is a well-nourished, well-developed patient, in no apparent distress. HEAD: normocephalic, atraumatic. EYES: PERRL. Sclera clear/white. Vision is grossly intact. EARS: External ears normal, auditory canals clear and without drainage, TMs normal without perforation. Hearing grossly intact. NOSE: External nose normal with no obvious nasal discharge, nares without redness, no rhinorrhea. THROAT: Mucous membranes moist, posterior pharynx clear. Tooth #16, third molar, is broken. Mild erythema and swelling to gums. No fluctuance concerning for abscess. NECK: Neck supple, non-tender without lymphadenopathy, masses or thyromegaly. CARDIOVASCULAR: Regular rate and rhythm without murmurs, gallops, or rubs. RESPIRATORY: Clear to auscultation. Breath sounds equal bilaterally. No wheezes, rales, or rhonchi. GASTROINTESTINAL: Abdomen soft, non-tender, nondistended. Bowel sounds are active. No hepato-splenomegaly, or palpable masses. No guarding. SKIN: warm, Dry, intact with no suspicious lesions or rash, good texture and turgor. NEURO: awake, alert, and oriented to person, place and time. There were no obvious focal neurologic abnormalities. EXTREMITIES: No joint tenderness, effusion, or edema noted. No calf tenderness. Negative Homans sign bilaterally. BACK: Nontender without deformity. No CVA tenderness. Course Course Level of Care: Express Care Visit Vital Signs Vital signs: Reviewed MDM - Dental/Oral MDM Narrative Medical decision making narrative: Patient is aware of diagnosis, understands and agrees to treatment plan. Anticipatory guidance given. Camelia
== END 2021-04-25 14:20 | disposition home or self-care (01) ==
PROVIDERS: Emergency Provider Nurse Practitioner Family; PCP Internal Medicine
DX: K08.89 Other specified disorders of teeth and supporting structures (principal)
CPT/HCPCS: 99213; G0463